=== PATIENT | female | born 1930 | race Caucasian/White ===

== ENCOUNTER → 2019-09-24 | Outpatient (CLI) | payer MEDICARE, BC | LOC: COL.RAD 09:25 | DX: I71.4 Abdominal aortic aneurysm, without rupture (principal); I27.21 Secondary pulmonary arterial hypertension; I51.7 Cardiomegaly; D71 Functional disorders of polymorphonuclear neutrophils; Z98.890 Other specified postprocedural states | CPT/HCPCS: Q9967 ==